=== PATIENT | male | born 1950 | race Caucasian/White ===

== ENCOUNTER 2020-08-18 22:36 | Inpatient (IN) | payer MEDICARE, MEDICAID ==
[~2020-08-18] VITALS: Ht 185.4 cm; Wt 71.4 kg
[2020-08-18] MEDS ORDERED: SODIUM CHLORIDE FLUSH 10ML SYR IVF ONE (23:00)
[2020-08-18] MEDS ORDERED: ALBUTEROL/IPRATROPIUM 2.5MG/0.5MG, 3 ML NPPB ONE (23:00)
[2020-08-18] MEDS ORDERED: methylPREDNISolone SOD SUCC 125 MG/2 ML IV ONE (23:00)
[2020-08-18] MEDS ORDERED: methylPREDNISolone SOD SUCC 125 MG/2 ML ONE (23:05)
[2020-08-18] MEDS ORDERED: ALBUTEROL/IPRATROPIUM 2.5MG/0.5MG, 3 ML ONE (23:06)
--- NOTE | 2020-08-18 23:26 | NUR ---
Patient presents to ER c/o SOB and weakness x2 weeks. Patient states it started out mild and got progressively worse. Patient is a chronic smoker and states he had one on his way here. Hx of COPD. Patient is in NAD. REspirations even and unlabored.
[2020-08-18] MEDS ORDERED: PLEASE ENTER ALLERGIES MC SCH (23:30)
[2020-08-18 23:33] LABS: BASOPHILS % (AUTO) 0 % (0-1); EOSINOPHILS % (AUTO) 0 % (1-7); LYMPHOCYTES % (AUTO) 15 % (22-44); MEAN CORPUSCULAR HEMOGLOBIN 31.5 pg (27.5-34.5); MEAN CORPUSCULAR HGB CONC 32.3 g/dL (33.2-36.2); MEAN PLATELET VOLUME 7.9 fL (7.4-10.4); MONOCYTES % (AUTO) 7 % (2-9); NEUTROPHILS % (AUTO) 77 % (42-75); PLATELET COUNT 434 x10^3/uL (130-400); RED BLOOD COUNT 2.25 x10^6/uL (4.38-5.82); RED CELL DISTRIBUTION WIDTH 14.7 % (9.4-14.8)
[2020-08-18 23:35] LABS: ALANINE AMINOTRANSFERASE 134 U/L (12-78); ALBUMIN 2.8 g/dL (3.4-5.0); ANION GAP 10 mmol/L (5-15); CHLORIDE 100 mmol/L (98-107)
[2020-08-18 23:42] LABS: ALKALINE PHOSPHATASE 288 U/L (45-117); BILIRUBIN,TOTAL 0.5 mg/dL (0.2-1.0); TOTAL PROTEIN 7.1 g/dL (6.4-8.2); TROPONIN I 0.043 ng/mL (0.000-0.045)
[2020-08-19] MEDS ORDERED: PANTOPRAZOLE 40 MG IV ONE (00:24)
[2020-08-19] MEDS ORDERED: PANTOPRAZOLE 40 MG IV IVPush ONE (00:30)
[2020-08-19 00:40] LABS: MD YES
[2020-08-19 00:43] LABS: BAND#(MANUAL) 0.22 x10^3/uL; BANDS%(MANUAL) 1 % (0-7); BASOS#(MANUAL) 0.22 x10^3/uL (0-0.1); BASOS% (MANUAL) 1 % (0-1); LYMPH#(MANUAL) 2.41 x10^3/uL (1-3.4); LYMPHS% (MANUAL) 11 % (22-44); METAMYELOCYTES# (MANUAL) 0.66 x10^3/uL (0-0); METAMYELOCYTES% (MANUAL) 3 % (0-1); MONOS#(MANUAL) 0.88 x10^3/uL (0.3-2.7); MONOS% (MANUAL) 4 % (2-9); MYELOCYTES# (MANUAL) 0.22 x10^3/uL (0-0); MYELOCYTES% (MANUAL) 1 % (0-0); REACTIVE LYMPHS # (MANUAL) 0.22 x10^3/uL (0-0); REACTIVE LYMPHS % (MANUAL) 1 % (0-0); SEG#(MANUAL) 17.08 x10^3/uL (1.8-6.8); SEGS% (MANUAL) 78 % (42-75)
[2020-08-19 00:44] LABS: ANISOCYTOSIS 1+; POLYCHROMASIA 1+
[2020-08-19 00:45] LABS: <PLATELET ESTIMATE> INCREASED; <PLT MORPHOLOGY> NORMAL PLT MORPH
[2020-08-19] MEDS ORDERED: OMNIPAQUE 350 MG/ML, 100ML BOTTLE ONE (01:06)
[2020-08-19 01:07] LABS: INTERNATIONAL NORMALIZED RATIO 1.07 (0.93-1.1)
[2020-08-19] MEDS: PANTOPRAZOLE 80 MG in SODIUM CHLORIDE 0.9% 100 ML IV SCH ×2 (01:14→10:15)
--- NOTE | 2020-08-19 01:42 | NUR ---
BREAK RN: PT. RESTING ON GURNEY WITH NO DISTRESS NOTED. VS UPDATED. ALL MONITORS IN PLACE. SLIP SENT TO BLOOD BANK TO REQUEST BLOOD: BLOOD WILL BE CHARTED VIA PAPER CHARTING FOR SYSTEM DOWNTIME.
[2020-08-19] MEDS ORDERED: CEFTRIAXONE PMX 1GM/50ML 50 ML ONE (02:13)
--- NOTE | 2020-08-19 05:12 | NUR ---
Report given to KOREY Alvarez. Patient to be transferred to room 502.
[2020-08-19] MEDS ORDERED: ALBUTEROL 0.5%, 20ML ONE (05:17)
[2020-08-19] MEDS ORDERED: morphine SULFATE 10 MG/ML, 1ML IVPush PRN (05:30)
[2020-08-19] MEDS ORDERED: ACETAMINOPHEN 325 MG TABLET PO PRN (05:30)
[2020-08-19] MEDS ORDERED: LABETALOL 5MG/ML, 20ML IVPush PRN (05:30)
[2020-08-19] MEDS ORDERED: PANTOPRAZOLE 80 MG in SODIUM CHLORIDE 0.9% 100 ML IV SCH (05:30)
[2020-08-19] MEDS ORDERED: POTASSIUM CHLORIDE 20 MEQ, MAGNESIUM SULFATE 2 GM, THIAMINE 200 MG, MVI ADULT 10 ML, FO... IV SCH (05:30)
[2020-08-19] MEDS ORDERED: ONDANSETRON 2MG/ML, 2ML IVPush PRN ×2 (05:30→09:30)
[2020-08-19 06:01] VITALS: BP 144/84
[2020-08-19 06:05] LABS: FREE T4 (FREE THYROXINE) 1.22 ng/dL (0.76-1.46)
[2020-08-19 07:18] VITALS: BP 124/71
[2020-08-19] MEDS ORDERED: CHLORHEXIDINE 15 ML UDC ONE (08:13)
[2020-08-19] MEDS ORDERED: PROPOFOL 10 MG/ML, 20ML ONE (08:44)
[2020-08-19] MEDS ORDERED: MIDAZOLAM 1 MG/ML, 2ML IV PRN (09:30)
[2020-08-19] MEDS ORDERED: FENTANYL PF 100 MCG/2ML IV PRN (09:30)
[2020-08-19] MEDS ORDERED: EPHEDRINE 50 MG/ML, 1ML IVPush PRN (09:30)
[2020-08-19] MEDS ORDERED: hydrALAzine 20 MG/ML, 1ML IV PRN (09:30)
[2020-08-19] MEDS ORDERED: LABETALOL 5MG/ML, 20ML IV PRN (09:30)
[2020-08-19] MEDS ORDERED: PROMETHAZINE 25 MG/ML, 1ML IVPush PRN (09:30)
[2020-08-19] MEDS ORDERED: DIAZEPAM 5 MG/ML, 2ML IVPush PRN (09:30)
[2020-08-19] MEDS ORDERED: OXYcodone 5 MG/5 ML ORAL.SOL UDC PO PRN (09:30)
[2020-08-19] MEDS ORDERED: MEPERIDINE/PF 25MG/0.5ML IVPush PRN (09:30)
[2020-08-19] MEDS ORDERED: HYDROmorphone 1 MG/ML, 1ML INJ IVPush PRN (09:30)
[2020-08-19] MEDS ORDERED: ALBUTEROL SULFATE 2.5 MG/3 ML NPPB PRN (09:30)
[2020-08-19] MEDS ORDERED: DIPHENHYDRAMINE 50 MG/ML, 1ML IVPush PRN (09:30)
[2020-08-19 09:54] VITALS: BP 131/83
[2020-08-19] MEDS: HEPARIN 5,000 UNITS/ML, 1ML IV ONE ×2 (12:09→16:50)
[2020-08-19] MEDS: PANTOPRAZOLE 40 MG IV IVPush SCH (13:37)
[2020-08-19] MEDS ORDERED: FENTANYL PF 100 MCG/2ML ONE ×2 (14:55→15:59)
[2020-08-19] MEDS ORDERED: NALOXONE 1 MG/ML, 2ML ONE (14:55)
[2020-08-19] MEDS ORDERED: LORazepam 2 MG/ML, 1ML IV PRN ×3 (15:00)
[2020-08-19] MEDS ORDERED: LORazepam 0.5MG TABLET PO PRN (15:00)
[2020-08-19] MEDS ORDERED: LORazepam 1MG TABLET PO PRN ×2 (15:00)
[2020-08-19 15:59] VITALS: BP 112/69
[2020-08-19] MEDS ORDERED: DICL50TA4 PO (16:31)
[2020-08-19] MEDS ORDERED: UMEC1DIS INH (16:31)
[2020-08-19] MEDS ORDERED: SIMV40TA20 PO (16:31)
[2020-08-19] MEDS ORDERED: ASPI81TA45 PO (16:31)
[2020-08-19] MEDS ORDERED: METO-264 PO (16:31)
[2020-08-19] MEDS: THIAMINE 100 MG in SODIUM CHLORIDE 0.9% 50 ML IV SCH (16:49)
[2020-08-19] MEDS: HEPARIN 25,000 UNITS/250ML PMX 250 ML IV PRN (16:54)
[2020-08-19 19:18] VITALS: BP 133/75
[2020-08-20 00:19] VITALS: BP 119/61
[2020-08-20] MEDS: PANTOPRAZOLE 40 MG IV IVPush SCH ×2 (00:34→12:37)
[2020-08-20] MEDS: HEPARIN 25,000 UNITS/250ML PMX 250 ML IV PRN (00:42)
[2020-08-20 02:19] LABS: BASOPHILS % (AUTO) 0 % (0-1); EOSINOPHILS % (AUTO) 0 % (1-7); LYMPHOCYTES % (AUTO) 10 % (22-44); MEAN CORPUSCULAR HEMOGLOBIN 30.2 pg (27.5-34.5); MEAN CORPUSCULAR HGB CONC 32.3 g/dL (33.2-36.2); MEAN PLATELET VOLUME 7.7 fL (7.4-10.4); MONOCYTES % (AUTO) 8 % (2-9); NEUTROPHILS % (AUTO) 83 % (42-75); PLATELET COUNT 305 x10^3/uL (130-400); RED BLOOD COUNT 2.43 x10^6/uL (4.38-5.82); RED CELL DISTRIBUTION WIDTH 19.1 % (9.4-14.8)
[2020-08-20 02:29] LABS: CALCIUM 8.2 mg/dL (8.5-10.1); CHLORIDE 104 mmol/L (98-107)
[2020-08-20 02:35] LABS: ALANINE AMINOTRANSFERASE 82 U/L (12-78); ALBUMIN 2.4 g/dL (3.4-5.0); ALKALINE PHOSPHATASE 229 U/L (45-117); ANION GAP 7 mmol/L (5-15); BILIRUBIN, DIRECT 0.2 mg/dL (0.1-0.2); BILIRUBIN,INDIRECT 0.3 mg/dL (0.0-2.0); BILIRUBIN,TOTAL 0.5 mg/dL (0.2-1.0); CREATININE 1.37 mg/dL (0.7-1.3); TOTAL PROTEIN 6.3 g/dL (6.4-8.2)
[2020-08-20 03:31] LABS: MD SCAN
[2020-08-20] MEDS: HEPARIN 5,000 UNITS/ML, 1ML IV PRN ×2 (07:13→21:39)
[2020-08-20 07:40] VITALS: BP 128/70
[2020-08-20] MEDS: OXYcodone IR 5MG TABLET PO PRN ×3 (08:23→21:16)
[2020-08-20] MEDS: CEFTRIAXONE PMX 1GM/50ML 50 ML IV SCH (10:08)
[2020-08-20 14:10] VITALS: BP 132/76
[2020-08-20] MEDS: THIAMINE 100 MG in SODIUM CHLORIDE 0.9% 50 ML IV SCH (16:54)
[2020-08-20 19:42] VITALS: BP 146/76
[2020-08-21] MEDS: PANTOPRAZOLE 40 MG IV IVPush SCH ×2 (00:12→12:15)
[2020-08-21] MEDS: HEPARIN 25,000 UNITS/250ML PMX 250 ML IV PRN (01:08)
[2020-08-21 01:13] VITALS: BP 130/77
[2020-08-21] MEDS: OXYcodone IR 5MG TABLET PO PRN ×5 (01:20→21:13)
[2020-08-21 04:31] LABS: MEAN CORPUSCULAR HEMOGLOBIN 30.4 pg (27.5-34.5); MEAN CORPUSCULAR HGB CONC 32.1 g/dL (33.2-36.2); MEAN PLATELET VOLUME 7.9 fL (7.4-10.4); PLATELET COUNT 336 x10^3/uL (130-400); RED BLOOD COUNT 2.64 x10^6/uL (4.38-5.82); RED CELL DISTRIBUTION WIDTH 18.8 % (9.4-14.8)
[2020-08-21 04:43] LABS: ALANINE AMINOTRANSFERASE 64 U/L (12-78); ALBUMIN 2.3 g/dL (3.4-5.0); ANION GAP 5 mmol/L (5-15); CALCIUM 8.3 mg/dL (8.5-10.1); CHLORIDE 102 mmol/L (98-107)
[2020-08-21 04:46] LABS: ALKALINE PHOSPHATASE 223 U/L (45-117); BILIRUBIN,TOTAL 0.5 mg/dL (0.2-1.0); CREATININE 1.07 mg/dL (0.7-1.3); TOTAL PROTEIN 6.4 g/dL (6.4-8.2)
[2020-08-21 05:10] LABS: MD YES
[2020-08-21 05:13] LABS: ANISOCYTOSIS 1+; LYMPH#(MANUAL) 2.31 x10^3/uL (1-3.4); LYMPHS% (MANUAL) 13 % (22-44); MONOS#(MANUAL) 1.07 x10^3/uL (0.3-2.7); MONOS% (MANUAL) 6 % (2-9); MYELOCYTES# (MANUAL) 0.18 x10^3/uL (0-0); MYELOCYTES% (MANUAL) 1 % (0-0); POLYCHROMASIA 1+; SEG#(MANUAL) 14.24 x10^3/uL (1.8-6.8); SEGS% (MANUAL) 80 % (42-75)
[2020-08-21 05:14] LABS: <PLATELET ESTIMATE> ADEQUATE; <PLT MORPHOLOGY> NORMAL PLT MORPH; SMUDGE CELLS 1+
[2020-08-21 07:40] VITALS: BP 112/67
[2020-08-21] MEDS: HEPARIN 5,000 UNITS/ML, 1ML IV PRN (10:57)
[2020-08-21] MEDS: CEFTRIAXONE PMX 1GM/50ML 50 ML IV SCH (11:01)
[2020-08-21 15:00] VITALS: BP 150/80
[2020-08-21 15:25] LABS: PROTHROMBIN TIME 10.3 Seconds (9.6-11.5)
[2020-08-21] MEDS: THIAMINE 100 MG in SODIUM CHLORIDE 0.9% 50 ML IV SCH (15:47)
[2020-08-21] MEDS: OMEPRAZOLE 20 MG CAPSULE.DR PO SCH (15:47)
[2020-08-21] MEDS ORDERED: WARFARIN 5 MG TABLET PO-COUM ONE (18:00)
[2020-08-21 19:03] VITALS: BP 118/76
[2020-08-22 00:23] VITALS: BP 124/74
[2020-08-22] MEDS: HEPARIN 25,000 UNITS/250ML PMX 250 ML IV PRN ×2 (00:44→23:22)
[2020-08-22] MEDS: OXYcodone IR 5MG TABLET PO PRN ×6 (01:10→23:21)
[2020-08-22] MEDS: OMEPRAZOLE 20 MG CAPSULE.DR PO SCH ×2 (05:43→17:42)
[2020-08-22 07:25] LABS: BASOPHILS % (AUTO) 0 % (0-1); EOSINOPHILS % (AUTO) 0 % (1-7); LYMPHOCYTES % (AUTO) 13 % (22-44); MEAN CORPUSCULAR HEMOGLOBIN 31.1 pg (27.5-34.5); MEAN CORPUSCULAR HGB CONC 32.6 g/dL (33.2-36.2); MEAN PLATELET VOLUME 7.4 fL (7.4-10.4); MONOCYTES % (AUTO) 7 % (2-9); NEUTROPHILS % (AUTO) 79 % (42-75); PLATELET COUNT 329 x10^3/uL (130-400); RED BLOOD COUNT 2.56 x10^6/uL (4.38-5.82); RED CELL DISTRIBUTION WIDTH 18.5 % (9.4-14.8)
[2020-08-22 07:36] LABS: INTERNATIONAL NORMALIZED RATIO 1.1 (0.93-1.1); PROTHROMBIN TIME 11.3 Seconds (9.6-11.5)
[2020-08-22 07:43] LABS: MD MORPH REVIEW ONLY
[2020-08-22 07:44] LABS: ANISOCYTOSIS 1+; HYPOCHROMIA 1+; POLYCHROMASIA 1+
[2020-08-22 07:45] LABS: <PLATELET ESTIMATE> ADEQUATE; <PLT MORPHOLOGY> NORMAL PLT MORPH
[2020-08-22 09:40] VITALS: BP 106/70
[2020-08-22] MEDS: HEPARIN 5,000 UNITS/ML, 1ML IV PRN (09:41)
[2020-08-22] MEDS: CEFTRIAXONE PMX 1GM/50ML 50 ML IV SCH (09:44)
[2020-08-22 13:03] VITALS: BP 112/74
[2020-08-22] MEDS: THIAMINE 100 MG in SODIUM CHLORIDE 0.9% 50 ML IV SCH (14:00)
[2020-08-22] MEDS ORDERED: WARFARIN 5 MG TABLET PO-COUM ONE (18:00)
[2020-08-22 18:58] VITALS: BP 112/67
[2020-08-23] MEDS: HEPARIN 5,000 UNITS/ML, 1ML IV PRN (00:06)
[2020-08-23 00:15] VITALS: BP 120/78
[2020-08-23] MEDS: OXYcodone IR 5MG TABLET PO PRN ×4 (04:18→21:12)
[2020-08-23 04:39] LABS: INTERNATIONAL NORMALIZED RATIO 1.61 (0.93-1.1); PROTHROMBIN TIME 16.7 Seconds (9.6-11.5)
[2020-08-23] MEDS: OMEPRAZOLE 20 MG CAPSULE.DR PO SCH ×2 (05:40→16:27)
[2020-08-23 09:00] VITALS: BP 116/75
[2020-08-23] MEDS: CEFTRIAXONE PMX 1GM/50ML 50 ML IV SCH (11:28)
[2020-08-23] MEDS: HEPARIN 25,000 UNITS/250ML PMX 250 ML IV PRN (15:22)
[2020-08-23] MEDS: THIAMINE 100 MG in SODIUM CHLORIDE 0.9% 50 ML IV SCH (15:22)
[2020-08-23 16:18] VITALS: BP 126/77
[2020-08-23] MEDS ORDERED: WARFARIN 2.5 MG TABLET PO-COUM ONE (18:00)
[2020-08-23 21:10] VITALS: BP 127/81
[2020-08-23] MEDS: GUAIFENESIN ER 600 MG TABLET PO SCH (21:12)
[2020-08-23] MEDS: POLYETHYLENE GLYCOL 17 GM PACKET PO SCH (21:12)
[2020-08-24 04:21] VITALS: BP 123/76
[2020-08-24] MEDS: OXYcodone IR 5MG TABLET PO PRN ×3 (04:22→14:07)
[2020-08-24] MEDS: OMEPRAZOLE 20 MG CAPSULE.DR PO SCH ×2 (05:09→17:17)
[2020-08-24 06:35] VITALS: BP 118/72
[2020-08-24 07:32] LABS: INTERNATIONAL NORMALIZED RATIO 2.59 (0.93-1.1); PROTHROMBIN TIME 26.9 Seconds (9.6-11.5)
[2020-08-24] MEDS: POLYETHYLENE GLYCOL 17 GM PACKET PO SCH (09:00)
[2020-08-24] MEDS: GUAIFENESIN ER 600 MG TABLET PO SCH (09:59)
[2020-08-24] MEDS: CEFTRIAXONE PMX 1GM/50ML 50 ML IV SCH (10:00)
[2020-08-24 12:28] VITALS: BP 116/75
[2020-08-24] MEDS ORDERED: HYDR-3652 PO (14:09)
[2020-08-24] MEDS: THIAMINE 100 MG in SODIUM CHLORIDE 0.9% 50 ML IV SCH (15:00)
[2020-08-24] MEDS ORDERED: OMEP-110 PO (15:37)
[2020-08-24] MEDS ORDERED: WARF3TAB52 PO (15:37)
[2020-08-24] MEDS ORDERED: FLU VACC QS2020-21(6MOS UP)/PF 60MCG/0.5 ML SYR IM-VACC ONE (17:00)
[2020-08-24] MEDS ORDERED: WARFARIN 2 MG TABLET PO-COUM ONE (18:00)
== END 2020-08-24 20:54 | disposition home health service (06) | DRG 368 ==
LOC: ED 23:59 → EDIP 08-19 04:29 → 5SO 08-19 05:51
PROVIDERS: ADMIT Family Medicine; ATTEND Internal Medicine
PROC: 30233N1 Transfusion of Nonautologous Red Blood Cells into Peripheral Vein, Percutaneous Approach (ICD-10-PCS; 2020-08-19)
PROC: 0DB98ZX Excision of Duodenum, Via Natural or Artificial Opening Endoscopic, Diagnostic (ICD-10-PCS; 2020-08-19)
PROC: 0DB68ZX Excision of Stomach, Via Natural or Artificial Opening Endoscopic, Diagnostic (ICD-10-PCS; 2020-08-19)
PROC: 0DB48ZX Excision of Esophagogastric Junction, Via Natural or Artificial Opening Endoscopic, Diagnostic (ICD-10-PCS; 2020-08-19)
PROC: BF45ZZZ Ultrasonography of Liver (ICD-10-PCS; 2020-08-19)
PROC: 0FB03ZX Excision of Liver, Percutaneous Approach, Diagnostic (ICD-10-PCS; principal; 2020-08-19 09:30)
PROC: 3E02340 Introduction of Influenza Vaccine into Muscle, Percutaneous Approach (ICD-10-PCS; 2020-08-24)
DX: K20.91 Esophagitis, unspecified with bleeding (principal); K29.01 Acute gastritis with bleeding; N17.0 Acute kidney failure with tubular necrosis; E43 Unspecified severe protein-calorie malnutrition; I26.99 Other pulmonary embolism without acute cor pulmonale; I81 Portal vein thrombosis; J96.01 Acute respiratory failure with hypoxia; D62 Acute posthemorrhagic anemia; E87.1 Hypo-osmolality and hyponatremia; J44.1 Chronic obstructive pulmonary disease with (acute) exacerbation; B19.20 Unspecified viral hepatitis C without hepatic coma; D72.829 Elevated white blood cell count, unspecified; E86.0 Dehydration; E86.1 Hypovolemia; F10.10 Alcohol abuse, uncomplicated; F17.200 Nicotine dependence, unspecified, uncomplicated; I10 Essential (primary) hypertension; I25.10 Atherosclerotic heart disease of native coronary artery without angina pectoris; I71.2 Thoracic aortic aneurysm, without rupture; Z20.828 Contact with and (suspected) exposure to other viral communicable diseases; K57.30 Diverticulosis of large intestine without perforation or abscess without bleeding; Z68.20 Body mass index [BMI] 20.0-20.9, adult; I25.2 Old myocardial infarction; Z95.5 Presence of coronary angioplasty implant and graft; Z23 Encounter for immunization
CPT/HCPCS: 36415; 47000; 71045; 71260; 74177; 76942; 80048; 80053; 80074; 80076; 80307; 82105; 83880; 84439; 84443; 84484; 85014; 85018; 85025; 85520; 85610; 85730; 86850; 86900; 86923; 87040; 87521; 87635; 88305; 88307; 88313; 88341; 88342; 90686; 93005; 93306; 94640; 99291; 99406; G0378; J0696; J1644; J2704; J3010; J3411; J3475; J3480; J7042; Q9967; C9113; J2310; J2930; P9016

== ENCOUNTER 2020-09-02 10:05 | Inpatient (IN) | payer MEDICARE, MEDICAID ==
[~2020-09-02] VITALS: Ht 185.4 cm; Wt 65.8 kg
[~2020-09-02 10:05] MED LIST: ASPI81TA45 PO; DICL50TA4 PO; HYDR-3652 PO; METO-264 PO; OMEP-110 PO; SIMV40TA20 PO; UMEC1DIS INH; WARF3TAB52 PO
--- NOTE | 2020-09-02 10:07 | NUR ---
PT BIBA. PER EMS REPORT PT WAS AT PCP AND HAD A BP OF 80/50. PCP CALLED EMS, PER EMS REPORT PT'S BP EN ROUTE WAS 130/80. PER EMS REPORT PT HAD A GI BLEED AND PE APPROX 2 WEEKS AGO. PER PT HE IS CURRENTLY ON WARFARIN, BUT HAS NOT TAKEN HIS MORNING DOSE. PT IS COMPLAINING OF WEAKNESS AND DIZZINESS UPON STANDING.
[2020-09-02 10:48] LABS: BASOPHILS % (AUTO) 2 % (0-1); EOSINOPHILS % (AUTO) 0 % (1-7); LYMPHOCYTES % (AUTO) 13 % (22-44); MEAN CORPUSCULAR HGB CONC 31.3 g/dL (33.2-36.2); MEAN PLATELET VOLUME 7.3 fL (7.4-10.4); MONOCYTES % (AUTO) 6 % (2-9); NEUTROPHILS % (AUTO) 79 % (42-75); PLATELET COUNT 479 x10^3/uL (130-400); RED BLOOD COUNT 3.92 x10^6/uL (4.38-5.82); RED CELL DISTRIBUTION WIDTH 19.3 % (9.4-14.8)
[2020-09-02 10:59] LABS: ALANINE AMINOTRANSFERASE 50 U/L (12-78); ALBUMIN 2.5 g/dL (3.4-5.0); ANION GAP 11 mmol/L (5-15); CALCIUM 8.5 mg/dL (8.5-10.1); CHLORIDE 99 mmol/L (98-107); CREATININE 1.03 mg/dL (0.7-1.3)
[2020-09-02 11:03] LABS: ALKALINE PHOSPHATASE 205 U/L (45-117); TOTAL PROTEIN 6.7 g/dL (6.4-8.2); TROPONIN I < 0.015 ng/mL (0.000-0.045)
[2020-09-02 11:10] LABS: MD MORPH REVIEW ONLY
[2020-09-02 11:15] LABS: ANISOCYTOSIS 1+; POLYCHROMASIA 1+
[2020-09-02 11:16] LABS: HYPOCHROMIA 1+
[2020-09-02 11:18] LABS: <PLATELET ESTIMATE> INCREASED; <PLT MORPHOLOGY> NORMAL PLT MORPH
[2020-09-02] MEDS ORDERED: SODIUM CHLORIDE 0.9%, 500ML IVBOLUS ONE (11:30)
--- NOTE | 2020-09-02 12:24 | NUR ---
ATTEMPTED TO AMBULATE PT. PT STOOD AT BEDSIDE AND REPORTED HE WAS DIZZY AND LIGHT HEADED. PT BACK IN [facility] RESTING, NO COMPLAINTS AT THIS TIME.
--- NOTE | 2020-09-02 15:22 | NUR ---
ROSEANNE ([facility]) - [phone]
--- NOTE | 2020-09-02 16:00 | NUR ---
PRECEPTOR NOTE: HOSPITAL BED REQUESTED OF HOUSEKEEPING.
--- NOTE | 2020-09-02 16:39 | NUR ---
THROUGHPUT RN: HOSPITAL BED ORDERED.
[2020-09-02] MEDS ORDERED: morphine SULFATE 10 MG/ML, 1ML IVPush PRN (17:00)
[2020-09-02] MEDS ORDERED: PROMETHAZINE 25 MG/ML, 1ML IM PRN (17:00)
[2020-09-02] MEDS ORDERED: POLYETHYLENE GLYCOL 17 GM PACKET PO PRN (17:00)
[2020-09-02] MEDS ORDERED: BISACODYL 10 MG SUPP PR PRN (17:00)
[2020-09-02] MEDS ORDERED: ONDANSETRON 2MG/ML, 2ML IVPush PRN (17:00)
[2020-09-02] MEDS ORDERED: ONDANSETRON ODT 4 MG PO PRN (17:00)
[2020-09-02] MEDS ORDERED: hydrALAzine 20 MG/ML, 1ML IVPush PRN (17:00)
[2020-09-02 17:34] LABS: FREE T4 (FREE THYROXINE) 1.33 ng/dL (0.76-1.46)
--- NOTE | 2020-09-02 18:07 | NUR ---
PT TRANSFERRED TO HOSPITAL BED. PT REPORTS NO COMPLAINTS AT THIS TIME.
--- NOTE | 2020-09-02 18:45 | NUR ---
PT REFUSING MEAL TRAY AT THIS TIME, REQUESTED CRACKERS & PEANUT BUTTER WHICH WERE PROVIDED WITH WATER BOTTLE. WARM BLANKET PROVIDED WELL.
[2020-09-02] MEDS ORDERED: OMEPRAZOLE 20 MG CAPSULE.DR ONE (19:17)
[2020-09-02] MEDS: OMEPRAZOLE 20 MG CAPSULE.DR PO SCH (19:19)
[2020-09-02 19:33] LABS: INTERNATIONAL NORMALIZED RATIO 2.51 (0.93-1.1); PROTHROMBIN TIME 26.4 Seconds (9.6-11.5)
[2020-09-02] MEDS ORDERED: WARFARIN 3 MG TABLET PO-COUM ONE (20:30)
[2020-09-02] MEDS: SIMVASTATIN 40 MG TABLET PO SCH (20:49)
[2020-09-02] MEDS: METOPROLOL SUCCINATE 25 MG TAB.ER.24H PO SCH (20:50)
[2020-09-02] MEDS ORDERED: METOPROLOL SUCCINATE 50 MG TAB.ER.24H PO SCH (21:00)
[2020-09-02] MEDS ORDERED: WARFARIN 3 MG TABLET PO-COUM SCH (21:00)
--- NOTE | 2020-09-02 21:13 | NUR ---
PT RESTING IN GURNEY WITH EYES CLOSED.
[2020-09-02 22:00] VITALS: BP 121/81
[2020-09-03 00:04] VITALS: BP 127/85
[2020-09-03 05:06] LABS: BASOPHILS % (AUTO) 1 % (0-1); EOSINOPHILS % (AUTO) 1 % (1-7); LYMPHOCYTES % (AUTO) 18 % (22-44); MEAN CORPUSCULAR HEMOGLOBIN 29.2 pg (27.5-34.5); MEAN CORPUSCULAR HGB CONC 31.6 g/dL (33.2-36.2); MEAN PLATELET VOLUME 7.2 fL (7.4-10.4); MONOCYTES % (AUTO) 7 % (2-9); NEUTROPHILS % (AUTO) 73 % (42-75); PLATELET COUNT 415 x10^3/uL (130-400); RED BLOOD COUNT 3.33 x10^6/uL (4.38-5.82); RED CELL DISTRIBUTION WIDTH 19.3 % (9.4-14.8)
[2020-09-03 05:16] LABS: CHLORIDE 101 mmol/L (98-107)
[2020-09-03 05:16] LABS: MD NO
[2020-09-03 05:22] LABS: INTERNATIONAL NORMALIZED RATIO 2.99 (0.93-1.1); PROTHROMBIN TIME 31.4 Seconds (9.6-11.5)
[2020-09-03 05:25] LABS: ALANINE AMINOTRANSFERASE 43 U/L (12-78); ALBUMIN 2.2 g/dL (3.4-5.0); ALKALINE PHOSPHATASE 167 U/L (45-117); ANION GAP 10 mmol/L (5-15); BILIRUBIN,TOTAL 0.9 mg/dL (0.2-1.0); CHOL/HDL RATIO 8.4; CHOLESTEROL, TOTAL 118 mg/dL (140-239); CREATININE 0.88 mg/dL (0.7-1.3); HDL CHOL % 12 % (26-37); HDL CHOLESTEROL (DIRECT) 14 mg/dL (40-60); LDL CHOLESTEROL,CALCULATED 80 mg/dL (54-169); LDL/HDL RATIO 5.7 (0.5-3.0); TOTAL PROTEIN 5.6 g/dL (6.4-8.2); TRIGLYCERIDES 118 mg/dL (50-200); VLDL CHOLESTEROL 24 mg/dL (0-25)
[2020-09-03] MEDS: OMEPRAZOLE 20 MG CAPSULE.DR PO SCH ×2 (06:22→17:15)
[2020-09-03 07:07] VITALS: BP 129/82
[2020-09-03 08:08] VITALS: BP 125/76
[2020-09-03] MEDS: SENNA/DOCUSATE TABLET PO SCH ×2 (10:20→10:21)
[2020-09-03] MEDS: METOPROLOL SUCCINATE 25 MG TAB.ER.24H PO SCH ×2 (10:20→20:49)
[2020-09-03 14:53] VITALS: BP 117/74
[2020-09-03] MEDS ORDERED: WARFARIN 1 MG TABLET PO-COUM ONE (18:00)
[2020-09-03 18:36] VITALS: BP 110/73
[2020-09-03] MEDS: SIMVASTATIN 40 MG TABLET PO SCH (20:49)
[2020-09-04 00:53] VITALS: BP 119/76
[2020-09-04 05:37] LABS: ANION GAP 10 mmol/L (5-15); CHLORIDE 99 mmol/L (98-107)
[2020-09-04 05:38] LABS: CALCIUM 8.3 mg/dL (8.5-10.1); CREATININE 0.88 mg/dL (0.7-1.3)
[2020-09-04 05:40] LABS: BASOPHILS % (AUTO) 1 % (0-1); EOSINOPHILS % (AUTO) 0 % (1-7); LYMPHOCYTES % (AUTO) 17 % (22-44); MEAN CORPUSCULAR HEMOGLOBIN 29.1 pg (27.5-34.5); MEAN CORPUSCULAR HGB CONC 31.6 g/dL (33.2-36.2); MEAN PLATELET VOLUME 7.5 fL (7.4-10.4); MONOCYTES % (AUTO) 6 % (2-9); NEUTROPHILS % (AUTO) 75 % (42-75); PLATELET COUNT 428 x10^3/uL (130-400); RED BLOOD COUNT 3.52 x10^6/uL (4.38-5.82); RED CELL DISTRIBUTION WIDTH 19.7 % (9.4-14.8)
[2020-09-04] MEDS: OMEPRAZOLE 20 MG CAPSULE.DR PO SCH ×2 (05:44→15:15)
[2020-09-04 05:56] LABS: INTERNATIONAL NORMALIZED RATIO 3.55 (0.93-1.1); PROTHROMBIN TIME 37.2 Seconds (9.6-11.5)
[2020-09-04 06:01] LABS: MD NO
[2020-09-04 07:45] VITALS: BP 126/78
[2020-09-04] MEDS: METOPROLOL SUCCINATE 25 MG TAB.ER.24H PO SCH ×2 (08:50→19:52)
[2020-09-04] MEDS ORDERED: HOLD MEDICATION MC PRN (09:30)
[2020-09-04] MEDS ORDERED: GADOTERATE 7.5 MMOL/15 ML VIAL ONE (11:27)
[2020-09-04 13:19] VITALS: BP 118/74
[2020-09-04] MEDS ORDERED: MEGESTROL 40MG TABLET PO SCH (13:30)
[2020-09-04] MEDS: OXYcodone IR 5MG TABLET PO PRN (15:16)
[2020-09-04] MEDS: MEGESTROL ORAL.SUSP 40 MG/ML PO SCH (15:20)
[2020-09-04 18:53] VITALS: BP 118/77
[2020-09-04] MEDS: SIMVASTATIN 40 MG TABLET PO SCH (19:52)
[2020-09-05 01:11] VITALS: BP 116/77
[2020-09-05] MEDS: OMEPRAZOLE 20 MG CAPSULE.DR PO SCH ×2 (05:53→17:49)
[2020-09-05 06:20] LABS: INTERNATIONAL NORMALIZED RATIO 3.2 (0.93-1.1); PROTHROMBIN TIME 33.5 Seconds (9.6-11.5)
[2020-09-05 07:25] VITALS: BP 114/57
[2020-09-05] MEDS: SENNA/DOCUSATE TABLET PO SCH (09:00)
[2020-09-05] MEDS: MEGESTROL ORAL.SUSP 40 MG/ML PO SCH (09:05)
[2020-09-05] MEDS: METOPROLOL SUCCINATE 25 MG TAB.ER.24H PO SCH ×2 (09:05→20:55)
[2020-09-05 13:39] VITALS: BP 113/63
[2020-09-05] MEDS: OXYcodone IR 5MG TABLET PO PRN ×2 (13:55→20:59)
[2020-09-05] MEDS ORDERED: WARFARIN 1 MG TABLET PO-COUM ONE (18:00)
[2020-09-05 18:35] VITALS: BP 113/79
[2020-09-05] MEDS: SIMVASTATIN 40 MG TABLET PO SCH (20:58)
[2020-09-06 00:15] VITALS: BP 106/76
[2020-09-06 05:25] LABS: INTERNATIONAL NORMALIZED RATIO 2.61 (0.93-1.1); PROTHROMBIN TIME 27.4 Seconds (9.6-11.5)
[2020-09-06] MEDS: OMEPRAZOLE 20 MG CAPSULE.DR PO SCH (06:17)
[2020-09-06 07:19] VITALS: BP 99/71
[2020-09-06] MEDS: METOPROLOL SUCCINATE 25 MG TAB.ER.24H PO SCH (07:58)
[2020-09-06] MEDS: SENNA/DOCUSATE TABLET PO SCH (07:58)
[2020-09-06] MEDS: MEGESTROL ORAL.SUSP 40 MG/ML PO SCH (07:59)
[2020-09-06] MEDS: OXYcodone IR 5MG TABLET PO PRN ×2 (08:53→14:16)
[2020-09-06] MEDS ORDERED: BISA10SU4 PR (12:57)
[2020-09-06] MEDS ORDERED: Warfarin PO-COUM (12:57)
[2020-09-06] MEDS ORDERED: Warfarin Maintenance Protocol XX (12:57)
[2020-09-06] MEDS ORDERED: MEGE400O6 PO (12:57)
[2020-09-06] MEDS ORDERED: METO25TA91 PO (12:57)
[2020-09-06] MEDS ORDERED: Senna/Docusate PO (12:57)
[2020-09-06 14:04] VITALS: BP 112/78
[2020-09-06] MEDS ORDERED: WARFARIN 1 MG TABLET PO-COUM ONE (18:00)
== END 2020-09-06 15:30 | DRG 435 ==
LOC: ED 12:26 → EDIP 12:38 → 3N 21:53 → 4NW 09-03 07:56
PROVIDERS: ADMIT Internal Medicine; ATTEND Internal Medicine
DX: C22.0 Liver cell carcinoma (principal); I26.99 Other pulmonary embolism without acute cor pulmonale; I81 Portal vein thrombosis; E43 Unspecified severe protein-calorie malnutrition; C78.00 Secondary malignant neoplasm of unspecified lung; E87.1 Hypo-osmolality and hyponatremia; J21.9 Acute bronchiolitis, unspecified; Z68.1 Body mass index [BMI] 19.9 or less, adult; D71 Functional disorders of polymorphonuclear neutrophils; I71.2 Thoracic aortic aneurysm, without rupture; B19.20 Unspecified viral hepatitis C without hepatic coma; F10.20 Alcohol dependence, uncomplicated; I10 Essential (primary) hypertension; I25.10 Atherosclerotic heart disease of native coronary artery without angina pectoris; I25.2 Old myocardial infarction; Z79.01 Long term (current) use of anticoagulants; Z85.05 Personal history of malignant neoplasm of liver; Z86.711 Personal history of pulmonary embolism; Z87.891 Personal history of nicotine dependence; Z95.5 Presence of coronary angioplasty implant and graft; Z79.899 Other long term (current) drug therapy; R91.8 Other nonspecific abnormal finding of lung field; R74.01 Elevation of levels of liver transaminase levels
CPT/HCPCS: 36415; 70553; 71045; 74183; 80048; 80053; 80061; 83036; 83735; 83880; 84439; 84443; 84484; 85025; 85610; 93005; 94640; 99285; G0378; A9575; J7040